=== PATIENT | male | born 1965 | race Two or more races ===

== ENCOUNTER 2017-02-23 17:03 | Emergency (ER) | payer SELFPAY ==
[~2017-02-23] VITALS: Ht 157.5 cm; Wt 72.1 kg
--- NOTE | 2017-02-23 17:12 | NUR ---
pt bibra to er bed 15. etoh, found outside an apartment complex sleeping in the ground. no obvious trauma noted. pt placed on monitor. 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 awaiting md watson.
--- NOTE | 2017-02-23 17:17 | NUR ---
GIACOMO CORNEJO AT BEDSIDE FOR EVAL.
--- NOTE | 2017-02-23 17:24 | NUR ---
IV LINE STARTED BLOOD DRAWN AND SENT TO LAB.
[2017-02-23] MEDS ORDERED: IV NS 0.9% 1,000 ML BAG IV ONE (17:30)
[2017-02-23 17:37] LABS: MEAN CORPUSCULAR HEMOGLOBIN 20 PG (26.0-33.0); RDW COEFFICIENT OF VARIATION 20.8 (11.5-15.0)
--- NOTE | 2017-02-23 17:37 | NUR ---
PT TO RADIOLOGY FOR HEAD CT SCAN VIA [facility].
[2017-02-23 17:38] LABS: CALCIUM, SERUM 7.5 mg/dL (8.5-10.1); CARBON DIOXIDE 28 mmol/L (21-32); CHLORIDE 101 mmol/L (98-107); CREATININE 0.7 mg/dL (0.6-1.3); GLUCOSE 81 mg/dL (74-106); POTASSIUM 3.3 mmol/L (3.5-5.1); SODIUM SERUM 138 mmol/L (136-145); UREA NITROGEN, BLOOD 9 mg/dL (7-18)
[2017-02-23 17:42] LABS: HEMATOCRIT 24 % (39-51); HEMOGLOBIN 7.1 g/dL (13.5-17.5); MEAN CORPUSCULAR HGB CONC 29 g/dl (31.0-36.0); MEAN CORPUSCULAR VOLUME 67 fL (80-96)
[2017-02-23 17:44] LABS: WHITE BLOOD COUNT (AUTO) 6.1 K/uL (4.3-11.0)
[2017-02-23 17:45] LABS: PLATELET COUNT (AUTO) 130 /CMM (150-450)
[2017-02-23 17:46] LABS: ALANINE AMINOTRANSFERASE 20 U/L (12-78); ALBUMIN 3.2 g/dL (3.4-5.0); ALCOHOL, BLOOD 407 mg/dL (0-0); ALKALINE PHOSPHATASE 87 U/L (46-116); ASPARTATE AMINOTRANSFERASE 48 U/L (15-37); BILIRUBIN,DIRECT 0.2 mg/dL (0.0-0.2); BILIRUBIN,TOTAL 0.5 mg/dL (0.2-1.0); TOTAL PROTEIN, SERUM 7.3 g/dL (6.4-8.2)
[2017-02-23 17:53] LABS: ACETAMINOPHEN < 10 ug/ml (10-30); SALICYLATE 2.4 mg/dL (2.8-20.0)
[2017-02-23 18:15] LABS: EOSINOPHILS % (MANUAL) 3 % (0-4); LYMPHOCYTES % (MANUAL) 29 % (16-48); MONOCYTES % (MANUAL) 4 % (0-11.0); NEUTROPHILS % (MANUAL) 64 (42-76)
--- NOTE | 2017-02-23 21:21 | NUR ---
PT SLEEPING. NAD NOTED. WILL CONT TO MONITOR.
--- NOTE | 2017-02-23 23:12 | NUR ---
SLEEPING, STABLE VITALS. REPORT GIVEN TO FABIO LOZANO FOR MECCA.
--- NOTE | 2017-02-24 06:50 | NUR ---
PT OK TO DISCHARGE HOME. PT REQUESTING TO BE DISCHARGED. PT SAFE TO NAVIGATE COMMUNITY. PT PROVIDED WITH BUS TOKENS. IV removed. Catheter intact and site benign. Pressure and 4x4 applied to site. No bleeding noted.Patient discharged to home in stable condition. Written and verbal after care instructions given. Patient verbalizes understanding of instruction.Patient is awake and alert to self, day, and place. PT ambulatory with a steady gait
[2017-02-24 07:17] VITALS: BP 132/75
== END 2017-02-24 06:50 | disposition home or self-care (01) ==
LOC: ER 17:06
DX: F10.129 Alcohol abuse with intoxication, unspecified (principal); D64.9 Anemia, unspecified; R51 Headache
CPT/HCPCS: 36415; 70450; 80048; 80076; 80329; 85025; 99285; A4606; G0480 ×2; J7030 ×2; Z7610